=== PATIENT | male | born 1940 | race Caucasian/White ===

== ENCOUNTER 2018-09-24 22:32 | Observation (INO) | payer MEDICARE ==
[~2018-09-24] VITALS: Ht 170.2 cm; Wt 87.1 kg
[~2018-09-24 22:32] MED LIST: ASPI-1181 PO; CITA20TA17 PO; CLOP75TA32 PO; ISOS60TA4 PO; LEVO50TA11 PO; METO100T14 PO; NITR0.4T50 SL; RANO10003 PO; SIMV80TA7 PO; TAMS0.4C32 PO; TRAM50TA4 PO; WARF-67 PO
[2018-09-24 22:49] LABS: BASOPHILS % (AUTO) 0.9 % (0.0-5.0); EOSINOPHILS % (AUTO) 1.1 % (0.0-8.0); HEMATOCRIT 38.7 % (42-54); LYMPHOCYTES % (AUTO) 22.3 % (21.0-51.0); MEAN CORPUSCULAR HEMOGLOBIN 30.7 pg (27.0-33.0); MEAN CORPUSCULAR HGB CONC 34.6 g/dL (32.0-36.0); MEAN CORPUSCULAR VOLUME 88.9 fL (79-99); MONOCYTES % (AUTO) 6.6 % (3.0-13.0); NEUTROPHILS % (AUTO) 69.1 % (40.0-77.0); NUCLEATED RED BLOOD CELLS 0.1 % (0.0-0.19); PLATELET COUNT (AUTO) 137 K/uL (130-400); RED BLOOD CELL COUNT(AUTO) 4.35 MIL/uL (4.50-6.20); RED CELL DISTRIBUTION WIDTH 16.7 % (11.0-15.5)
[2018-09-24 22:58] LABS: CREATININE 1.5 mg/dL (0.5-1.5); POTASSIUM 4.2 mmol/L (3.5-5.1)
[2018-09-24 23:02] LABS: INR 2.07 (0.85-1.15); PARTIAL THROMBOPLASTIN TIME 39.7 SEC (26.3-35.5); PROTHROMBIN TIME 21.4 SEC (9.6-11.6)
[2018-09-24] MEDS ORDERED: ASPIRIN 325 MG TABLET ONE (23:05)
[2018-09-24 23:06] LABS: B-TYPE NATRIURETIC PEPTIDE 476 pg/mL (0-100)
[2018-09-24 23:08] LABS: ALBUMIN 3.8 g/dL (3.5-5.0); BILIRUBIN,TOTAL 0.5 mg/dL (0.2-1.0); TOTAL PROTEIN, SERUM 7.6 g/dL (6.0-8.3)
[2018-09-25] MEDS ORDERED: SODIUM CHLORIDE 0.9% 1000ML 1,000 ML IV SCH (01:19)
[2018-09-25] MEDS ORDERED: NITROGLYCERIN 0.4 MG SL TAB SL PRN (01:30)
[2018-09-25] MEDS ORDERED: ONDANSETRON HCL MDV 20ML 2 MG/ML VIAL IV PRN (01:30)
[2018-09-25] MEDS ORDERED: MORPHINE SULFATE 4 MG/1ML SYG IV PRN (01:30)
[2018-09-25] MEDS ORDERED: ACETAMINOPHEN 325 MG TAB PO PRN (01:30)
[2018-09-25] MEDS ORDERED: MORPHINE SULFATE 2 MG/ML 1ML SYG IV PRN (01:30)
[2018-09-25 02:00] VITALS: BP 123/80
[2018-09-25] MEDS ORDERED: CITA-106 PO (02:57)
[2018-09-25] MEDS ORDERED: TAMS0.4C32 PO (02:57)
[2018-09-25] MEDS ORDERED: LEVO100 PO (02:57)
[2018-09-25] MEDS ORDERED: SIMV40TA59 PO (02:57)
[2018-09-25] MEDS ORDERED: ISOS30TA6 PO (02:57)
[2018-09-25] MEDS ORDERED: DIGO0.12 PO (02:57)
[2018-09-25] MEDS ORDERED: METO50TA18 PO (02:57)
[2018-09-25] MEDS ORDERED: FINA5TAB41 PO (02:57)
[2018-09-25 03:35] VITALS: BP 137/76
[2018-09-25 06:37] LABS: BASOPHILS % (AUTO) 0.5 % (0.0-5.0); EOSINOPHILS % (AUTO) 1.6 % (0.0-8.0); HEMATOCRIT 34.5 % (42-54); LYMPHOCYTES % (AUTO) 20.7 % (21.0-51.0); MEAN CORPUSCULAR HEMOGLOBIN 30.2 pg (27.0-33.0); MEAN CORPUSCULAR HGB CONC 33.8 g/dL (32.0-36.0); MEAN CORPUSCULAR VOLUME 89.4 fL (79-99); MONOCYTES % (AUTO) 5.9 % (3.0-13.0); NEUTROPHILS % (AUTO) 71.3 % (40.0-77.0); PLATELET COUNT (AUTO) 109 K/uL (130-400); RED BLOOD CELL COUNT(AUTO) 3.86 MIL/uL (4.50-6.20); RED CELL DISTRIBUTION WIDTH 17.4 % (11.0-15.5); WHITE BLOOD COUNT (AUTO) 7.8 K/uL (4.8-10.8)
[2018-09-25 07:00] VITALS: BP 126/58
[2018-09-25 07:01] LABS: ALANINE AMINOTRANSFERASE 35 U/L (12-78); ALBUMIN 3.2 g/dL (3.5-5.0); ASPARTATE AMINOTRANSFERASE 30 U/L (10-37); BILIRUBIN,TOTAL 0.4 mg/dL (0.2-1.0); CARBON DIOXIDE 28 mmol/L (21-32); CHLORIDE 104 mmol/L (101-111); CHOLESTEROL 114 mg/dL (<200); CREATINE KINASE, TOTAL 110 U/L (21-232); CREATININE 1.3 mg/dL (0.5-1.5); GLOMERULAR FILTR. RATE CALC 56 mL/min (>60); GLUCOSE,RANDOM 111 mg/dL (70-105); HDL CHOLESTEROL 31 mg/dL (29-71); LDL DIRECT 60 mg/dL (0-99); MYOGLOBIN 84 ng/mL (10-92); POTASSIUM 3.9 mmol/L (3.5-5.1); SODIUM SERUM 140 mmol/L (136-145); THYROID STIMULATING HORMONE 1.57 uIU/mL (0.36-3.74); TOTAL PROTEIN, SERUM 6.5 g/dL (6.0-8.3); TRIGLYCERIDES 300 mg/dL (30-200); TROPONIN I < 0.04 ng/mL (0.00-0.06); UREA NITROGEN, BLOOD 22 mg/dL (7-18)
[2018-09-25 07:13] LABS: INR 1.96 (0.85-1.15); PARTIAL THROMBOPLASTIN TIME 40.1 SEC (26.3-35.5); PROTHROMBIN TIME 20.3 SEC (9.6-11.6)
[2018-09-25] MEDS ORDERED: RANOLAZINE 500 MG TAB.SR.12H PO SCH (09:00)
[2018-09-25] MEDS ORDERED: METOPROLOL TARTRATE 50 MG TAB PO SCH (09:00)
[2018-09-25] MEDS ORDERED: CITALOPRAM 20 MG TABLET PO SCH (09:00)
[2018-09-25] MEDS ORDERED: ASPIRIN 81 MG EC TAB PO SCH (09:00)
[2018-09-25] MEDS ORDERED: FINASTERIDE 5 MG TABLET PO SCH (09:00)
[2018-09-25] MEDS ORDERED: PANTOPRAZOLE SODIUM 40 MG TABLET.DR PO SCH (09:00)
[2018-09-25] MEDS ORDERED: DIGOXIN 125 MCG TABLET PO SCH (09:00)
[2018-09-25] MEDS ORDERED: ENOXAPARIN SODIUM 30 MG/0.3 ML SQ SCH (09:00)
[2018-09-25 11:00] VITALS: BP_SYST 127; BP_SYST 128; BP_SYST 131; BP_DIAS 66; BP_DIAS 68
[2018-09-25] MEDS ORDERED: WARF3TAB59 PO (13:32)
[2018-09-25] MEDS ORDERED: WARF-67 PO (13:32)
[2018-09-25 14:19] LABS: CREATINE KINASE, TOTAL 104 U/L (21-232); MYOGLOBIN 59 ng/mL (10-92); TROPONIN I < 0.04 ng/mL (0.00-0.06)
[2018-09-25] MEDS ORDERED: SIMVASTATIN 20 MG TABLET PO SCH (21:00)
[2018-09-26] MEDS ORDERED: LEVOTHYROXINE 100 MCG TABLET PO SCH (07:30)
[2018-09-26] MEDS ORDERED: WARFARIN SODIUM 2 MG TAB PO SCH (09:00)
[2018-09-27] MEDS ORDERED: WARFARIN SODIUM 2 MG TAB PO SCH (09:00)
== END 2018-09-25 17:22 | disposition home or self-care (01) ==
LOC: EDH 22:32 → EDHIP 09-25 00:27 → INTOOBSV 09-25 00:27 → 3AH 09-25 01:35
PROVIDERS: ADMIT Internal Medicine; ATTEND Internal Medicine
DX: I25.119 Atherosclerotic heart disease of native coronary artery with unspecified angina pectoris (principal); I10 Essential (primary) hypertension; E03.9 Hypothyroidism, unspecified; E78.5 Hyperlipidemia, unspecified; R42 Dizziness and giddiness; I49.5 Sick sinus syndrome; I48.2 Chronic atrial fibrillation; I35.0 Nonrheumatic aortic (valve) stenosis; N40.0 Benign prostatic hyperplasia without lower urinary tract symptoms; G47.33 Obstructive sleep apnea (adult) (pediatric); I25.2 Old myocardial infarction; I48.92 Unspecified atrial flutter; J44.9 Chronic obstructive pulmonary disease, unspecified; Z79.01 Long term (current) use of anticoagulants; Z82.0 Family history of epilepsy and other diseases of the nervous system; Z82.49 Family history of ischemic heart disease and other diseases of the circulatory system; Z82.5 Family history of asthma and other chronic lower respiratory diseases; Z83.3 Family history of diabetes mellitus; Z95.0 Presence of cardiac pacemaker; Z95.1 Presence of aortocoronary bypass graft; Z96.649 Presence of unspecified artificial hip joint; Z98.61 Coronary angioplasty status; Z82.3 Family history of stroke
CPT/HCPCS: 36415 ×2; 71045; 80053 ×2; 80061; 82550 ×3; 83735; 83874 ×3; 83880; 84443; 84484 ×3; 85025 ×2; 85610 ×2; 85730 ×2; 93005 ×2; 99285; G0378 ×17

== ENCOUNTER 2019-01-27 11:17 | Emergency (ER) | payer MEDICARE ==
[~2019-01-27 11:17] MED LIST changes: +CITA-106 PO; -CITA20TA17 PO; -CLOP75TA32 PO; +DIGO0.12 PO; +FINA5TAB41 PO; +ISOS30TA6 PO; -ISOS60TA4 PO; +LEVO100 PO; -LEVO50TA11 PO; -METO100T14 PO; +METO50TA18 PO; +SIMV40TA59 PO; -SIMV80TA7 PO; +WARF3TAB59 PO
[2019-01-27 11:47] LABS: BASOPHILS % (AUTO) 0.5 % (0.0-5.0); HEMATOCRIT 39.3 % (42-54); LYMPHOCYTES % (AUTO) 22.6 % (21.0-51.0); MEAN CORPUSCULAR HEMOGLOBIN 29.9 pg (27.0-33.0); MEAN CORPUSCULAR HGB CONC 34.2 g/dL (32.0-36.0); MEAN CORPUSCULAR VOLUME 87.5 fL (79-99); MONOCYTES % (AUTO) 6.6 % (3.0-13.0); NEUTROPHILS % (AUTO) 69.3 % (40.0-77.0); PLATELET COUNT (AUTO) 157 K/uL (130-400); RED BLOOD CELL COUNT(AUTO) 4.49 MIL/uL (4.50-6.20); RED CELL DISTRIBUTION WIDTH 16.6 % (11.0-15.5); WHITE BLOOD COUNT (AUTO) 7.4 K/uL (4.8-10.8)
[2019-01-27 12:01] LABS: CREATININE 1.4 mg/dL (0.5-1.5); POTASSIUM 4.6 mmol/L (3.5-5.1)
[2019-01-27 12:06] LABS: INR 2.01 (0.85-1.15); PARTIAL THROMBOPLASTIN TIME 40.3 SEC (26.3-35.5); PROTHROMBIN TIME 20.8 SEC (9.6-11.6)
[2019-01-27 12:12] LABS: ALBUMIN 3.7 g/dL (3.5-5.0); BILIRUBIN,TOTAL 0.7 mg/dL (0.2-1.0); DIGOXIN 1.32 ng/mL (0.50-2.00); TOTAL PROTEIN, SERUM 7.5 g/dL (6.0-8.3)
[2019-01-27 12:25] LABS: B-TYPE NATRIURETIC PEPTIDE 337 pg/mL (0-100)
== END 2019-01-27 14:01 | disposition home or self-care (01) ==
LOC: EDH 11:17
DX: I10 Essential (primary) hypertension (principal); I25.10 Atherosclerotic heart disease of native coronary artery without angina pectoris; E78.00 Pure hypercholesterolemia, unspecified; I48.91 Unspecified atrial fibrillation; F32.9 Major depressive disorder, single episode, unspecified; Z86.73 Personal history of transient ischemic attack (TIA), and cerebral infarction without residual deficits; Z87.891 Personal history of nicotine dependence
CPT/HCPCS: 36415; 71045; 80053; 80162; 82550; 83874; 83880; 84484; 85025; 85610; 85730; 93005